=== PATIENT | male | born 1990 | race Caucasian/White ===

== ENCOUNTER 2020-04-26 09:12 | Emergency (ER) | payer SELFPAY ==
[~2020-04-26 09:12] MED LIST: HYDR1TAB66 PO; TMSL.4C PO
[2020-04-26 09:17] VITALS: BP 148/100
[2020-04-26] MEDS ORDERED: SILVER SULFADIAZINE 50 GM CREAM ONE (09:17)
[2020-04-26] MEDS ORDERED: morphine INJ 10 MG/ML 1ML (SYR OR VIAL) IM STA (09:23)
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
[2020-04-26] MEDS ORDERED: RX-HYDROCODONE/APAP 5/325 MG #4 TAB PK PO PRN (09:30)
[2020-04-26] MEDS ORDERED: TETANUS,DIPTH,PERTUSS P/F (BOOSTRIX) 0.5 ML VIAL IM ONE (09:30)
[2020-04-26] MEDS ORDERED: IBUP-1780 PO (09:43)
[2020-04-26] MEDS ORDERED: ACHD5005 PO (09:43)
== END 2020-04-26 09:53 | disposition home or self-care (01) ==
LOC: EDUNIT# 09:12 → ER FS 09:13
DX: T22.211A Burn of second degree of right forearm, initial encounter (principal); T22.112A Burn of first degree of left forearm, initial encounter; T31.0 Burns involving less than 10% of body surface; R40.2410 Glasgow coma scale score 13-15, unspecified time; Z23 Encounter for immunization; Z88.0 Allergy status to penicillin; Z88.8 Allergy status to other drugs, medicaments and biological substances; X12.XXXA Contact with other hot fluids, initial encounter
CPT/HCPCS: 90715; 99284

== ENCOUNTER 2023-04-04 18:08 | Emergency (ER) | payer SELFPAY ==
[~2023-04-04] VITALS: Ht 180 cm; Wt 79.0 kg
[~2023-04-04 18:08] MED LIST changes: +ACHD5005 PO; +IBUP-1780 PO
[2023-04-04 18:10] VITALS: BP 115/79
--- NOTE | 2023-04-04 18:12 | ED Cough/URI ---
General Chief Complaint: Cough/Cold/Flu Symptoms Stated Complaint: COUGH; NASAL CONGESTION History of Present Illness Date Seen by Provider: Apr 04, 2023 Time Seen by Provider: 18:11 Initial Comments 32-year-old male was sent here from urgent care to get a narcotic cough syrup prescription as per patient. Patient has symptoms of cough, fever, nasal congestion for the past 4 days. Patient is a smoker. Patient reports that he was not tested for COVID, flu, strep at urgent care. Patient wants a narcotic cough syrup prescription. Denies nausea vomiting, diarrhea, abdominal pain, chest pain, shortness of breath. Allergies and Home Medications Allergies Coded Allergies: Cyclobenzaprine (Unverified Allergy, MUSCLE TWITCHES, 08/20/10) Penicillins (Unverified Allergy, N/V, 08/20/10) Patient Home Medication List Home Medication List Reviewed: Yes Hydrocodone/Acetaminophen (Hydrocodone-Acetamin 5-325 mg) 1 Each Tablet, 1 EACH PO Q4H PRN for PAIN-SEVERE (8-10) Prescribed by: JACINTO ORR on 04/26/20 0943 Ibuprofen (Ibuprofen) 800 Mg Tablet, 800 MG PO Q8H PRN for PAIN Prescribed by: JACINTO ORR on 04/26/20 0943 Review of Systems Review of Systems Constitutional: fever EENTM: nose congestion Respiratory: cough Cardiovascular: no symptoms reported Gastrointestinal: no symptoms reported Skin: no symptoms reported Past Fpnzpel-Swzuxw-Jurvcn Hx Seasonal Allergies Seasonal Allergies: No Past Medical History Surgeries: No Orthopedic Respiratory: No Cardiac: No Neurological: No Reproductive Disorders: No Sexually Transmitted Disease: No Genitourinary: Yes Kidney Stones Gastrointestinal: No Musculoskeletal: No Endocrine: No Integumentary: No Blood Disorders: No Physical Exam Vital Signs - First Documented 04/04/23 18:10 Temp 36.6 Pulse 91 Resp 16 B/P (MAP) 115/79 (91) Pulse Ox 100 O2 Delivery Room Air Capillary Refill : Height: '" Weight: lbs. oz. kg; BMI Method: General Appearance: WD/WN, no apparent distress HEENT: PERRL/EOMI, pharyngeal erythema Neck: non-tender, full range of motion, supple Respiratory: chest non-tender, lungs clear Cardiovascular: regular rate, rhythm Neurologic/Psychiatric: alert, oriented x 3 Skin: normal color Progress/Results/Core Measures Suspected Sepsis SIRS Temperature: Pulse: Respiratory Rate: Blood Pressure / Mean: Results/Orders Lab Results Laboratory Tests Test 04/04/23 18:14 04/04/23 18:15 Range/Units Influenza Type A (RT-PCR) Not Detected Not Detecte Influenza Type B (RT-PCR) Not Detected Not Detecte SARS-CoV-2 RNA (RT-PCR) Not Detected Not Detecte Group A Streptococcus Screen Not Detected NotDetected My Orders Orders - CHEN MEZA MD Rapid Strep A Screen (04/04/23 18:12) Influenza A And B By Pcr (04/04/23 18:12) Covid 19 Inhouse Test (04/04/23 18:12) Vital Signs/I&O 04/04/23 18:10 Temp 36.6 Pulse 91 Resp 16 B/P (MAP) 115/79 (91) Pulse Ox 100 O2 Delivery Room Air Capillary Refill : Progress Note : Progress Note 1. VIRAL SYNDROME/ VIRAL BRONCHITIS: - Covid test/ Rapid flu test/ Rapid strep test: negative -Discussed viral bronchitis with patient and advised him to stop smoking. I was planning to prescribe Tessalon Perles for patient for cough but patient refused stating that it does not work and he only wants a narcotic cough medication which the government is hiding from the patient. Patient does not want anything and left without waiting for discharge papers. -I advised patient to follow-up with PCP but he refused saying he does not want to see anyone. Departure Impression Primary Impression: Viral syndrome Additional Impression: Viral bronchitis Disposition: 01 HOME, SELF-CARE Condition: Stable Departure-Patient Inst. Referrals: [facility] [place] (PCP/Family) Primary Care Physician Patient Instructions: Bronchitis, Adult ED, Viral Syndrome (DC) CHEN MEZA MD Apr 04, 2023 18:12
== END 2023-04-04 18:57 | disposition home or self-care (01) ==
LOC: EDUNIT# 18:08 → ER FS 18:09
DX: J20.8 Acute bronchitis due to other specified organisms (principal); F17.210 Nicotine dependence, cigarettes, uncomplicated
CPT/HCPCS: 87430; 87636; 99283